=== PATIENT | female | born 1950 | race African-American/Black ===

== ENCOUNTER 2017-07-17 08:50 | Outpatient (CLI) | payer MEDICARE ==
--- NOTE | 2017-07-17 10:13 | Mammography Report ---
BONE DENSITY STUDY: Postmenopausal osteoporosis DEFINITIONS: BMD = Bone Mineral Density T-score = BMD related to mean peak bone mass of young adult (mean expressed in Standard Deviation) Z-score = Age matched BMD expressed in SD World Health Organization (WHO) Diagnostic Criteria Normal T-score > -1 SD Osteopenia T-score between -1 and -2.4 SD Osteoporosis T-score -2.5 SD or below FINDINGS: The weighted average BMD of lumbar spine L1-L4 is 0.696 with a T-score of -3.2. The weighted average BMD of the left hip is 0.666 with a T-score of -2.3. IMPRESSION: The patient's average T-score is diagnostic for osteoporosis and high relative risk for fracture. NOTE: BMD is not the only risk factor for fracture; also consider factors such as the patient's age, risk of falling, previous osteoporotic fracture, family history of osteoporotic fractures, current smoker, and low body weight. Gaitan's triangle is a region of interest in femur, predominantly of trabecular bone. It is not a true anatomic site, and ISCD does not recommend its use clinically.
== END 2017-07-17 08:51 | disposition home or self-care (01) ==
LOC: MAMMO 08:50
DX: M81.0 Age-related osteoporosis without current pathological fracture (principal); Z78.0 Asymptomatic menopausal state
CPT/HCPCS: 77080

== ENCOUNTER 2018-11-30 12:41 | Outpatient (CLI) | payer MEDICARE ==
--- NOTE | 2018-11-30 14:37 | Mammography Report ---
Bilateral mammogram: No previous studies at present available. CAD study utilized. Findings: Heterogeneous breast parenchyma bilaterally. No mass or microcalcification. Benign calcifications. Benign axillary nodes. Impression: Benign findings. Annual followup recommended. BI-RADS CATEGORY: 2 = Benign ACR BI-RADS MAMMOGRAPHIC CODES: 0 = Needs additional imaging evaluation; 1 = Negative; 2 = Benign; 3 = Probably benign; 4 = Suspicious; 5 = Malignant; 6 = Known biopsy-proven malignancy COMMENT: 1. Dense breast tissue, i.e., adenosis, fibrocystic changes, etc., may obscure an underlying neoplasm. 2. Approximately 10% of cancers are not detected with mammography. 3. A negative mammography report should not delay biopsy if a clinically suspicious mass is present. COMMENT: Patient follow-up letters are generated in [employer].
--- NOTE | 2018-11-30 14:39 | Mammography Report ---
BONE DENSITY STUDY: DEFINITIONS: BMD = Bone Mineral Density T-score = BMD related to mean peak bone mass of young adult (mean expressed in Standard Deviation) Z-score = Age matched BMD expressed in SD World Health Organization (WHO) Diagnostic Criteria Normal T-score > -1 SD Osteopenia T-score between -1 and -2.4 SD Osteoporosis T-score -2.5 SD or below FINDINGS: The weighted average BMD of lumbar spine L1-L4 is 0.693 with a T-score of -3.2. The weighted average BMD of hip is 0.663 with a T-score of -2.3. IMPRESSION: The patient's T-score is diagnostic for osteoporosis and high relative risk for fracture. NOTE: BMD is not the only risk factor for fracture; also consider factors such as the patient's age, risk of falling, previous osteoporotic fracture, family history of osteoporotic fractures, current smoker, and low body weight. Gaitan's triangle is a region of interest in femur, predominantly of trabecular bone. It is not a true anatomic site, and ISCD does not recommend its use clinically.
== END 2018-11-30 12:42 | disposition home or self-care (01) ==
LOC: MAMMO 12:41
PROVIDERS: ATTEND Family Medicine
DX: Z12.31 Encounter for screening mammogram for malignant neoplasm of breast (principal); M81.0 Age-related osteoporosis without current pathological fracture
CPT/HCPCS: 77067; 77080

== ENCOUNTER 2021-04-05 10:19 | Outpatient (CLI) | payer MEDICARE ==
--- NOTE | 2021-04-05 13:00 | Mammography Report ---
DEXA BONE DENSITY SCAN INDICATION / CLINICAL INFORMATION: SCRN OSTEO. 71 years Female COMPARISON: 11/30/2018 LUMBAR SPINE, L1-L4: - Bone mineral density (BMD) = 0.7 g/cm2. - T-score = -3.2 - Z-score = -1.0 Change (%) since most recent prior (if available): 1% increase since 2018. LEFT HIP, TOTAL : - Bone mineral density (BMD) = 0.663 g/cm2. - T-score = -2.3 - Z-score = -0.8 T score in the femoral neck is -3.3 with Z score of -1.5 Change (%) since most recent prior (if available): 0.1% decrease IMPRESSION: 1. WHO Classification: Osteoporosis. Fracture Risk: High. Note: 10-Year Fracture Risk (FRAX) not reported. This DEXA unit lacks FRAX functionality. BMD Reporting Guidelines (ISCD, 2015) BMD Reporting in Postmenopausal Women and in Men Age 50 and Older - T-scores are preferred. - The WHO densitometric classification is applicable. BMD Reporting in Females Prior to Menopause and in Males Younger Than Age 50 - Z-scores, not T-scores, are preferred. This is particularly important in children. - A Z-score of -2.0 or lower is defined as below the expected range for age, and a Z-score above -2.0 is within the expected range for age. - Osteoporosis cannot be diagnosed in men under age 50 on the basis of BMD alone. - The WHO diagnostic criteria may be applied to women in the menopausal transition. http://www.iscd.org/official-positions/1362-fcht-hfnzsgji-positions-adult/ Signer Name: Rod Smith MD Signed: 04/05/2021 12:55 PM Workstation Name: [id number]
== END 2021-04-05 10:20 | disposition home or self-care (01) ==
LOC: MAMMO 10:19
PROVIDERS: ATTEND Internal Medicine Geriatric Medicine
DX: M81.0 Age-related osteoporosis without current pathological fracture (principal); Z13.820 Encounter for screening for osteoporosis; Z72.0 Tobacco use
CPT/HCPCS: 77080